=== PATIENT | male | born 2000 | race Caucasian/White ===

== ENCOUNTER 2024-08-24 10:20 | Emergency (ER) | payer OTHER ==
[~2024-08-24] VITALS: Ht 177.8 cm; Wt 77.1 kg
[2024-08-24 10:29] VITALS: BP 147/63
[2024-08-24] MEDS ORDERED: QVAR REDIHALE10.6 G3 IH (10:31)
[2024-08-24] MEDS ORDERED: Dexamethasone Sod Phos 10 MG/ML 1ML VIAL PO ONE (10:35)
[2024-08-24 11:33] LABS: Influenza A, PCR NEGATIVE (NEGATIVE); Influenza B, PCR NEGATIVE (NEGATIVE); Resp Syncytial Virus, PCR NEGATIVE (NEGATIVE); SARS-Cov-2 (COVID-19) PCR, MMC NEGATIVE (NEGATIVE)
== END 2024-08-24 11:51 | disposition home or self-care (01) ==
LOC: ER 10:20
PROVIDERS: Physician Assistant
DX: R05.9 Cough, unspecified (principal); J45.909 Unspecified asthma, uncomplicated; Z79.51 Long term (current) use of inhaled steroids
CPT/HCPCS: 0241U; 87081; 87430; 99283; J1100

== ENCOUNTER 2024-09-11 21:21 | Emergency (ER) | payer OTHER ==
[~2024-09-11] VITALS: Ht 177.8 cm; Wt 77.1 kg
[~2024-09-11 21:21] MED LIST: QVAR REDIHALE10.6 G3 IH
[2024-09-11 21:36] VITALS: BP 150/85
[2024-09-11] MEDS ORDERED: Benzonatate 100 MG Cap PO ONE (23:00)
[2024-09-11] MEDS ORDERED: Amoxicillin/Clavulanate K 875 MG Tab PO ONE (23:00)
[2024-09-11] MEDS ORDERED: AMOCLA875 PO (23:02)
[2024-09-11] MEDS ORDERED: Tessalon200 MG PO (23:02)
[2024-09-11] MEDS ORDERED: Albuterol 2.5 MG/3 ML VIAL INH SCH (23:05)
== END 2024-09-11 23:34 | disposition home or self-care (01) ==
LOC: ER 21:21
DX: J06.9 Acute upper respiratory infection, unspecified (principal); J45.909 Unspecified asthma, uncomplicated; Z79.899 Other long term (current) drug therapy
CPT/HCPCS: 71046; 94640; 94664; 99283-25; A9270